=== PATIENT | male | born 1965 | race Caucasian/White ===

== ENCOUNTER 2018-02-03 23:24 | Inpatient (IN) | payer BC ==
[~2018-02-03] VITALS: Ht 180.3 cm; Wt 62.1 kg
--- NOTE | 2018-02-03 23:40 | ED.ADGEN ---
Past History Past Medical History: Alcoholism, Hepatitis, Other Adult General Chief Complaint Chief Complaint "... I need help to stop drinking... ".. :"When I try to stop by myself.. I get seizures...".." I been drinking about a .... Liter of vodka today... And have been for the past 6 months.. I was off alcohol for a couple months.. " "I ve got to stop... I just need help getting started..." HPI HPI Patient is a 52 year old male who presents with above hx and complaints of alcohol abuse. Patient's had periodic episodes of sobriety. Has been on an alcohol binge for the past 6 months. Thank you patient has been consuming approximately 1 L of vodka per day. Patient gives a history of alcohol withdrawal seizures in the past. Patient denies other drug use. Has been more nauseated today than usual. No history of trauma. No history of travel or specific ill contacts. Does have a history of past alcohol hepatitis. No history of suicidal ideation or homicidal ideation. Patient is accompanied with his [id number]-law. She states this is his baseline mentation when he drinks. Review of Systems Review of Systems Constitutional: Denies fever or chills [] Eyes: Denies change in visual acuity, redness, or eye pain [] HENT: Denies nasal congestion or sore throat [] Respiratory: Denies cough or shortness of breath [] Cardiovascular: No additional information not addressed in HPI [] GI: Denies abdominal pain, , vomiting, bloody stools or diarrhea []complains of nausea. : Denies dysuria or hematuria [] Musculoskeletal: Denies back pain or joint pain [] Integument: Denies rash or skin lesions [] Neurologic: Denies headache, focal weakness or sensory changes [ Endocrine: Denies polyuria or polydipsia [] All other systems were reviewed and found to be within normal limits, except as documented in this note. Family History Family History Noncontributory Current Medications Current Medications Current Medications Medications (Trade) Dose Ordered Sig/Indy Start Time Stop Time Status Last Admin Dose Admin Acetaminophen (Tylenol) 500 mg QIDPRN PRN 02/04/18 01:30 Folic Acid (FOLIC ACID SYRINGE for ER) 5 mg STK-MED ONCE 02/03/18 23:48 02/03/18 23:49 DC Lactated Ringer's 1,000 ml @ 1,000 mls/hr 1X ONCE 02/04/18 02:30 02/04/18 03:29 DC 02/04/18 02:56 1,000 MLS/HR Lorazepam (Ativan) 2 mg 1X PRN PRN 02/04/18 01:30 Magnesium Sulfate 50 ml @ 25 mls/hr 1X ONCE 02/04/18 02:00 02/04/18 03:59 02/04/18 02:56 25 MLS/HR Multivitamins/ Minerals (Infuvite Adult) 10 ml STK-MED ONCE 02/03/18 23:48 02/03/18 23:49 DC Multivitamins/ Minerals 10 ml/ Folic Acid 1 mg/ Thiamine HCl 100 mg/Lactated Ringer's 1,011.2 ml @ 1,011.2 mls/hr 1X ONCE 02/04/18 00:00 02/04/18 00:59 DC 02/04/18 00:04 1,011.2 MLS/HR Ondansetron HCl (Zofran) 8 mg 1X ONCE 02/04/18 02:15 02/04/18 02:16 DC 02/04/18 02:09 8 MG Potassium Chloride (KCl Oral Soln) 40 meq 1X ONCE 02/04/18 02:00 02/04/18 02:50 DC Thiamine HCl (Thiamine Im) 200 mg STK-MED ONCE 02/03/18 23:48 02/03/18 23:49 DC Allergies Allergies Allergies Coded Allergies Type Severity Reaction Last Updated Verified No Known Drug Allergies 02/03/18 No Physical Exam Physical Exam Constitutional: Moderately acute distress, intoxicated in appearance. [] HENT: Normocephalic, atraumatic, bilateral external ears normal, oropharynx moist, no oral exudates, nose normal. [] Eyes: PERRLA, EOMI, conjunctiva normal, no discharge. [] Neck: Normal range of motion, no tenderness, supple, no stridor. [] Cardiovascular: Tachycardia Heart rate regular rhythm, no murmur [] Lungs & Thorax: Bilateral breath sounds equal at apex with scattered wheezes on auscultation [] Abdomen: Bowel sounds normal, soft, no tenderness, no masses, no pulsatile masses. [] Skin: Warm, dry, no erythema, no rash. [] Back: No tenderness, no CVA tenderness. [] Old surgery scar Extremities: No tenderness, no cyanosis, no clubbing, ROM intact, no edema. [] Neurologic: Alert and oriented X 3, normal motor function, normal sensory function, no focal deficits noted. []DTRs +2 patella and brachial. Wide gait. Mild generalized dis coordination Psychologic: Affect anxious, judgement normal, mood be depressed Current Patient Data Vital Signs Vital Signs Date Time Temp Pulse Resp B/P (MAP) Pulse Ox O2 Delivery O2 Flow Rate FiO2 02/04/18 01:00 72 16 134/86 (102) 99 Room Air 02/03/18 23:29 98.1 Lab Results Laboratory Tests Test 02/04/18 00:10 02/04/18 01:53 White Blood Count 4.3 x10^3/uL (4.0-11.0) Red Blood Count 4.85 x10^6/uL (4.30-5.70) Hemoglobin 16.0 g/dL (13.0-17.5) Hematocrit 46.3 % (39.0-53.0) Mean Corpuscular Volume 96 fL (79-100) Mean Corpuscular Hemoglobin 33 pg (25-35) Mean Corpuscular Hemoglobin Concent 34 g/dL (31-37) Red Cell Distribution Width 15.2 % (11.5-14.5) H Platelet Count 39 x10^3/uL (140-400) L Neutrophils (%) (Auto) 67 % (31-73) Lymphocytes (%) (Auto) 22 % (24-48) L Monocytes (%) (Auto) 10 % (0-9) H Eosinophils (%) (Auto) 1 % (0-3) Basophils (%) (Auto) 1 % (0-3) Neutrophils # (Auto) 2.9 x10^3uL (1.8-7.7) Lymphocytes # (Auto) 0.9 x10^3/uL (1.0-4.8) L Monocytes # (Auto) 0.4 x10^3/uL (0.0-1.1) Eosinophils # (Auto) 0.0 x10^3/uL (0.0-0.7) Basophils # (Auto) 0.0 x10^3/uL (0.0-0.2) Platelet Estimate Decreased (ADEQUATE) Prothrombin Time 10.6 SEC (9.4-11.4) Prothrombin Time INR 1.1 (0.9-1.1) PTT 25 SEC (23-33) Sodium Level 138 mmol/L (136-145) Potassium Level 3.0 mmol/L (3.5-5.1) L Chloride Level 98 mmol/L (98-107) Carbon Dioxide Level 25 mmol/L (21-32) Anion Gap 15 (6-14) H Blood Urea Nitrogen 13 mg/dL (8-26) Creatinine 0.7 mg/dL (0.7-1.3) Estimated GFR (Cockcroft-Gault) 118.9 Glucose Level 139 mg/dL (70-99) H Calcium Level 8.0 mg/dL (8.5-10.1) L Magnesium Level 1.6 mg/dL (1.8-2.4) L Total Bilirubin 1.8 mg/dL (0.2-1.0) H Direct Bilirubin 1.1 mg/dL (0.0-0.2) H Aspartate Amino Transferase (AST) 281 U/L (15-37) H Alanine Aminotransferase (ALT) 97 U/L (16-63) H Alkaline Phosphatase 477 U/L (46-116) H Creatine Kinase 166 U/L (39-308) Troponin I Quantitative < 0.017 ng/mL (0-0.055) TR-Lya-X-Type Natriuretic Peptide 29 pg/mL (0-124) Total Protein 6.3 g/dL (6.4-8.2) L Albumin 3.3 g/dL (3.4-5.0) L Lipase 595 U/L (73-393) H Ethyl Alcohol Level 338 mg/dL (0-10) H Urine Collection Type Void Urine Color Yellow Urine Clarity Clear Urine pH 7.5 Urine Specific [place] 1.015 Urine Protein Neg (NEG-TRACE) Urine Glucose (UA) Neg mg/dL (NEG) Urine Ketones (Stick) Neg mg/dL (NEG) Urine Blood Neg (NEG) Urine Nitrite Neg (NEG) Urine Bilirubin Neg (NEG) Urine Urobilinogen Dipstick 8 mg/dL (0.2 mg/dL) Urine Leukocyte Esterase Neg (NEG) Urine RBC 0 /HPF (0-2) Urine WBC Occ /HPF (0-4) Urine Squamous Epithelial Cells Few /LPF Urine Bacteria 0 /HPF (0-FEW) Urine Opiates Screen Neg (NEG) Urine Methadone Screen Neg (NEG) Urine Barbiturates Neg (NEG) Urine Phencyclidine Screen Neg (NEG) Urine Amphetamine/Methamphetamine Neg (NEG) Urine Benzodiazepines Screen Neg (NEG) Urine Cocaine Screen Neg (NEG) Urine Cannabinoids Screen Neg (NEG) Urine Ethyl Alcohol Pos (NEG) EKG EKG I interpretation of EKG as a sinus rhythm at 91 bpm. Nonspecific contour changes in anterior lateral leads. But no findings acute STEMI with contralateral changes[] Radiology/Procedures Radiology/Procedures My interpretation of chest x-ray shows no acute cardiopulmonary findings.[] There is no free air under the diaphragm. Course & Med Decision Making Course & Med Decision Making Pertinent Labs and Imaging studies reviewed. (See chart for details) Patient admitted to Dr. Villar for further evaluation and treatment. [facility]- input for possible in pt. alcohol rehab. [] Final Impression Final Impression 1. Alcoholism[]- 338 2. Hx. of Alcohol Withdrawal Seizures 3. Hypomagnesium 1.6 4. Hypotension/ Dizzy 5. Hypokalemia 3.0 6. Elevated AST 281/ALT 97/T. Kiran 1.8/ D.Kiran 1.1 7. Elevated Lipase 8. Thrombocytopenia Dragon Disclaimer Dragon Disclaimer This electronic medical record was generated, in whole or in part, using a voice recognition dictation system. TOMMIE BROWN MD Feb 03, 2018 23:40
[2018-02-03] MEDS ORDERED: THIAMINE IM 200 MG/2 ML VIAL. IM ONE (23:48)
[2018-02-03] MEDS ORDERED: MVI, ADULT NO.4 WITH VIT K 10 ML VIAL IV ONE (23:48)
[2018-02-03] MEDS ORDERED: FOLIC ACID 5 MG/ML SYRINGE for ER IV ONE (23:48)
--- NOTE | 2018-02-03 23:55 | EKG ---
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 Electronically Signed On 02-05-2018 9:17:45 DIETITIAN CHIEF by Fredo Latham
[2018-02-04] MEDS ORDERED: IV RINGERS SOLUTION,LACTATED 1,000 ML IV SCH
[2018-02-04] MEDS ORDERED: MVI, ADULT NO.4 WITH VIT K 10 ML, FOLIC ACID SYRINGE for ER 1 MG, THIAMINE INJ 100 MG i... IV ONE ×4
[2018-02-04] MEDS ORDERED: ONDANSETRON PF 4 MG/2 ML VIAL. ONE (00:22)
[2018-02-04] MEDS ORDERED: ONDANSETRON PF 4 MG/2 ML VIAL. IV ONE ×2 (00:45→02:15)
[2018-02-04 00:46] LABS: BASO % 1 % (0-3); EOS % 1 % (0-3); HEMATOCRIT 46.3 % (39.0-53.0); LYMPH # 0.9 x10^3/uL (1.0-4.8); LYMPH % 22 % (24-48); MEAN CORPUSCULAR HEMOGLOBIN 33 pg (25-35); MEAN CORPUSCULAR HGB CONC 34 g/dL (31-37); MEAN CORPUSCULAR VOLUME 96 fL (79-100); MONO # 0.4 x10^3/uL (0.0-1.1); MONO % 10 % (0-9); NEUT # 2.9 x10^3uL (1.8-7.7); NEUT % 67 % (31-73); PLATELET COUNT 39 x10^3/uL (140-400); RED BLOOD COUNT 4.85 x10^6/uL (4.30-5.70); RED CELL DISTRIBUTION WIDTH 15.2 % (11.5-14.5); WHITE BLOOD COUNT 4.3 x10^3/uL (4.0-11.0)
[2018-02-04 01:04] LABS: PLT ESTIMATE DECREASED (ADEQUATE)
[2018-02-04 01:19] LABS: ALBUMIN 3.3 g/dL (3.4-5.0); CREATININE 0.7 mg/dL (0.7-1.3); DIRECT BILIRUBIN 1.1 mg/dL (0.0-0.2); GFR 118.9; MAGNESIUM 1.6 mg/dL (1.8-2.4); TOTAL BILIRUBIN 1.8 mg/dL (0.2-1.0); TOTAL PROTEIN 6.3 g/dL (6.4-8.2)
[2018-02-04] MEDS ORDERED: ACETAMINOPHEN 500 MG TABLET PO PRN (01:30)
[2018-02-04] MEDS ORDERED: ONDANSETRON PF 4 MG/2 ML VIAL. IV PRN (01:30)
[2018-02-04] MEDS ORDERED: MAGNESIUM SULFATE 2GM 50 ML IV ONE (02:00)
[2018-02-04] MEDS ORDERED: POTASSIUM CHLORIDE 20 MEQ/15 ML ORAL LIQUID. PO ONE (02:00)
[2018-02-04] MEDS: IV RINGERS SOLUTION,LACTATED 1,000 ML IV SCH ×6 (02:09→22:40)
[2018-02-04 02:17] LABS: BARBITURATES NEG (NEG); BENZODIAZEPINES NEG (NEG); CANNABINOIDS NEG (NEG); COCAINE NEG (NEG); METHADONE NEG (NEG); OPIATES NEG (NEG); PHENCYCLIDINE NEG (NEG)
[2018-02-04 02:22] LABS: BILIRUBIN,URINE NEG (NEG); CLARITY,URINE CLEAR; COLOR,URINE YELLOW; GLUCOSE,URINE NEG (NEG)
[2018-02-04 02:23] LABS: BACTERIA,URINE 0 /HPF (0-FEW); NITRITE,URINE NEG (NEG); RBC,URINE 0 /HPF (0-2); SQUAMOUS EPITHELIAL CELL,UR FEW /LPF; UROBILINOGEN,URINE 8 mg/dL (0.2 mg/dL); WBC,URINE OCC /HPF (0-4)
[2018-02-04 02:27] LABS: AMPHETAMINE/METHAMPHETAMINE NEG (NEG)
[2018-02-04] MEDS ORDERED: IV RINGERS SOLUTION,LACTATED 1,000 ML IV ONE (02:30)
[2018-02-04 02:45] VITALS: BP 142/91
[2018-02-04] MEDS ORDERED: HALOPERIDOL LACT 5 MG/ML VIAL. IV PRN (03:00)
[2018-02-04] MEDS ORDERED: cloNIDine HCL 0.1 MG TABLET PO PRN (03:00)
--- NOTE | 2018-02-04 03:05 | RAD ---
AP portable chest radiograph 02/03/2018 Clinical History: Alcohol intoxication. An AP erect portable digital radiograph of the chest was obtained. No previous studies are available for comparison. The cardiac silhouette is normal in size. The thoracic aorta is minimally tortuous. No acute pulmonary infiltrate is seen. No pleural effusion or pneumothorax is noted. The osseous structures are grossly intact. IMPRESSION: No acute abnormality is seen. Electronically signed by: gD Judd MD (02/04/2018 3:01 AM) [facility]
[2018-02-04] MEDS: chlordiazePOXIDE HCL 25 MG CAPSULE PO PRN ×3 (03:12→14:30)
[2018-02-04] MEDS ORDERED: POTASSIUM CHLORIDE 20 MEQ TABLET.ER. PO ONE ×2 (03:30→21:00)
[2018-02-04 05:09] VITALS: BP 136/75
[2018-02-04] MEDS: IPRATRPIUM/ALBUTEROL 0.5/2.5MG 3 ML NEBU. NEB SCH ×5 (08:00→20:54)
[2018-02-04] MEDS: LORazepam 1 MG TABLET PO SCH ×4 (08:22→20:14)
[2018-02-04] MEDS: NICOTINE 21MG PATCH. TD SCH (08:22)
[2018-02-04] MEDS: FAMOTIDINE 20 MG TABLET PO SCH (08:22)
[2018-02-04] MEDS: LORazepam 2 MG/ML VIAL IV PRN ×4 (08:27→14:30)
[2018-02-04] MEDS: MVI, ADULT NO.4 WITH VIT K 10 ML, FOLIC ACID SYRINGE for ER 1 MG, THIAMINE INJ 100 MG i... IV SCH ×4 (09:03)
[2018-02-04 10:37] LABS: CALCIUM 7.8 mg/dL (8.5-10.1); CREATININE 0.7 mg/dL (0.7-1.3); GFR 118.9; POTASSIUM 3.2 mmol/L (3.5-5.1)
[2018-02-04 10:49] VITALS: BP 114/71
[2018-02-04 14:51] VITALS: BP 110/72
--- NOTE | 2018-02-04 17:06 | HP ---
ADMIT DATE: 02/04/2018 HISTORY OF PRESENT ILLNESS: The patient is a 52-year-old male patient who came to the Emergency Room stating that he needs help to stop drinking. He stated that when he tries to stop himself, he gets seizures. He stated that he has been drinking about a liter of vodka every day and had been doing this for the last 6 months. He was off alcohol for a couple of months and he is here just to need help to stop drinking. He apparently has been on a alcohol binge for about 6 months, has been drinking approximately 1 liter of vodka every day the patient has history of alcohol withdrawal seizures in the past, but denied any other drug use and has been nauseated more than usual. There is no history of trauma, no history of travel or specific ill contact. He does have history of alcoholic hepatitis; however, he denied any suicidal or homicidal ideation. PAST MEDICAL HISTORY: Significant for alcoholic hepatitis versus liver cirrhosis, peripheral neuropathy. PAST SURGICAL HISTORY: Significant for back surgery. ALLERGIES: No known drug allergies. MEDICATIONS: No medication. FAMILY HISTORY: He has one brother of the pancreatic cancer. His mother at the age of 43 because of breast cancer. His father is still alive at age of 88 and healthy. SOCIAL HISTORY: He is , has 2 sons. He smokes a pack a day. He drinks about a liter of vodka every day. Does not use any drugs. 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 REVIEW OF SYSTEMS: The patient denied any blurring of vision, cataract, glaucoma or macular degeneration. Denied any earache, tinnitus, or sensorineural deafness. Denied any nosebleeds, stuffy nose, or postnasal drip. Denied any sore throat, sore tongue, toothache, hoarseness of voice, or difficulty swallowing. He did complain of nausea and vomiting, but denied any diarrhea or constipation. Denied any hematemesis, melena, or hematochezia. Denied any dysuria, frequency, or hematuria. Denied any chest pain, shortness of breath, orthopnea, or paroxysmal nocturnal dyspnea. Denied any cough, phlegm, or hemoptysis. Denied any dizziness, lightheadedness, or vertigo. PHYSICAL EXAMINATION: GENERAL: When I saw him, he was resting slightly propped up in bed, in no apparent respiratory distress. He was sleepy, but arousable. VITAL SIGNS: His heart rate was 78, blood pressure was 136/75, temperature was 98.5, respiratory rate 20, and oxygen saturation was 98%. HEAD, EYES, EARS, NOSE, AND THROAT: Normocephalic, atraumatic. NECK: Supple. HEART: Showed normal first and second heart sounds. No gallop, rub, or murmur. CHEST: Clear to auscultation. No crepitation or rhonchi. ABDOMEN: Distended, soft, nontender. NEUROLOGIC: He was sleepy, but arousable. All cranial nerves are intact. EXTREMITIES: He moves extremities without difficulty. LABORATORY DATA: His lab work on arrival showed a white cell count 4300, hemoglobin 16, hematocrit 46, MCV 96, and platelet count of 39,000 with normal manual differential. His chemistry showed serum sodium of 138, potassium 3, chloride 98, bicarbonate 25, anion gap of 15, BUN of 13, creatinine 0.7, estimated GFR was 118 mL per minute, his glucose was 139, calcium was 8, magnesium was 1.6. Total bilirubin is 1.8 and direct bilirubin is 1.1. AST and ALT are both elevated. Alkaline phosphatase is also elevated. His CK was 166. Beta natriuretic peptide was 29. Total protein was 6.3, albumin 3.3, and serum lipase was 595. His prothrombin time was 10.6, INR 1.1, and aPTT was 25. His urinalysis was essentially unremarkable. Toxic screen showed blood alcohol level was 338 mg/dL. The toxicology screen was negative for opiates, methadone, barbiturates, phencyclidine, amphetamine, methamphetamine, benzodiazepine, cocaine, and cannabinoids. IMPRESSION AND PLAN: In summary, this is a 52-year-old male patient who came in with alcoholism, history of alcohol withdrawal seizures, hypomagnesemia, hypokalemia, alcoholic hepatitis, thrombocytopenia and pancreatitis. We would continue with the banana bag. Continue with alcohol withdrawal protocol. We will monitor his lab work and replenish his potassium and magnesium. GARCÍA HERNANDEZ MD DR: BARBIE/deejay JOB#: [id number] / [id number]
--- NOTE | 2018-02-04 18:24 | PDOC ---
Exam Note: Salo Note: Please also refer to the separate dictated note~for this date of service dictated separately.~Patient seen individually. Discussed the patient with Nursing staff reviewed the chart.~Reviewed interim history and current functioning. Reviewed vital signs,~Labs/ Radiology~and current medications noted below. Continue current treatment with the changes noted in the dictated addendum note Assessment: Vital Signs: Vital Signs Date Time Temp Pulse Resp B/P (MAP) Pulse Ox O2 Delivery O2 Flow Rate FiO2 02/04/18 16:09 97 Room Air 02/04/18 14:51 99.2 91 20 110/72 (85) I&O Intake and Output 02/04/18 07:00 Intake Total 2006.77 ml Balance 2006.77 ml Intake Oral 800 ml IV Total 1206.77 ml # Voids 3 Labs: Laboratory Tests Test 02/04/18 00:10 02/04/18 01:53 02/04/18 04:15 02/04/18 10:08 White Blood Count 4.3 x10^3/uL (4.0-11.0) Red Blood Count 4.85 x10^6/uL (4.30-5.70) Hemoglobin 16.0 g/dL (13.0-17.5) Hematocrit 46.3 % (39.0-53.0) Mean Corpuscular Volume 96 fL (79-100) Mean Corpuscular Hemoglobin 33 pg (25-35) Mean Corpuscular Hemoglobin Concent 34 g/dL (31-37) Red Cell Distribution Width 15.2 % (11.5-14.5) H Platelet Count 39 x10^3/uL (140-400) L Neutrophils (%) (Auto) 67 % (31-73) Lymphocytes (%) (Auto) 22 % (24-48) L Monocytes (%) (Auto) 10 % (0-9) H Eosinophils (%) (Auto) 1 % (0-3) Basophils (%) (Auto) 1 % (0-3) Neutrophils # (Auto) 2.9 x10^3uL (1.8-7.7) Lymphocytes # (Auto) 0.9 x10^3/uL (1.0-4.8) L Monocytes # (Auto) 0.4 x10^3/uL (0.0-1.1) Eosinophils # (Auto) 0.0 x10^3/uL (0.0-0.7) Basophils # (Auto) 0.0 x10^3/uL (0.0-0.2) Platelet Estimate Decreased (ADEQUATE) Prothrombin Time 10.6 SEC (9.4-11.4) Prothrombin Time INR 1.1 (0.9-1.1) PTT 25 SEC (23-33) Sodium Level 138 mmol/L (136-145) 137 mmol/L (136-145) Potassium Level 3.0 mmol/L (3.5-5.1) L 3.2 mmol/L (3.5-5.1) L Chloride Level 98 mmol/L (98-107) 101 mmol/L (98-107) Carbon Dioxide Level 25 mmol/L (21-32) 26 mmol/L (21-32) Anion Gap 15 (6-14) H 10 (6-14) Blood Urea Nitrogen 13 mg/dL (8-26) 10 mg/dL (8-26) Creatinine 0.7 mg/dL (0.7-1.3) 0.7 mg/dL (0.7-1.3) Estimated GFR (Cockcroft-Gault) 118.9 118.9 Glucose Level 139 mg/dL (70-99) H 77 mg/dL (70-99) Calcium Level 8.0 mg/dL (8.5-10.1) L 7.8 mg/dL (8.5-10.1) L Magnesium Level 1.6 mg/dL (1.8-2.4) L 1.7 mg/dL (1.8-2.4) L Total Bilirubin 1.8 mg/dL (0.2-1.0) H Direct Bilirubin 1.1 mg/dL (0.0-0.2) H Aspartate Amino Transferase (AST) 281 U/L (15-37) H Alanine Aminotransferase (ALT) 97 U/L (16-63) H Alkaline Phosphatase 477 U/L (46-116) H Creatine Kinase 166 U/L (39-308) Troponin I Quantitative < 0.017 ng/mL (0-0.055) < 0.017 ng/mL (0-0.055) [id number]-Fjd-[id number]-Type Natriuretic Peptide 29 pg/mL (0-124) Total Protein 6.3 g/dL (6.4-8.2) L Albumin 3.3 g/dL (3.4-5.0) L Lipase 595 U/L (73-393) H Thyroid Stimulating Hormone (TSH) 0.490 uIU/mL (0.358-3.740) Ethyl Alcohol Level 338 mg/dL (0-10) H Hepatitis A IgM Antibody Nonreactive (Nonreactive) Hepatitis B Surface Antigen Nonreactive (Nonreactive) Hepatitis B Core IgM Antibody Nonreactive (Nonreactive) Hepatitis C IgG Antibody Nonreactive (Nonreactive) Urine Collection Type Void Urine Color Yellow Urine Clarity Clear Urine pH 7.5 Urine Specific [place] 1.015 Urine Protein Neg (NEG-TRACE) Urine Glucose (UA) Neg mg/dL (NEG) Urine Ketones (Stick) Neg mg/dL (NEG) Urine Blood Neg (NEG) Urine Nitrite Neg (NEG) Urine Bilirubin Neg (NEG) Urine Urobilinogen Dipstick 8 mg/dL (0.2 mg/dL) Urine Leukocyte Esterase Neg (NEG) Urine RBC 0 /HPF (0-2) Urine WBC Occ /HPF (0-4) Urine Squamous Epithelial Cells Few /LPF Urine Bacteria 0 /HPF (0-FEW) Urine Opiates Screen Neg (NEG) Urine Methadone Screen Neg (NEG) Urine Barbiturates Neg (NEG) Urine Phencyclidine Screen Neg (NEG) Urine Amphetamine/Methamphetamine Neg (NEG) Urine Benzodiazepines Screen Neg (NEG) Urine Cocaine Screen Neg (NEG) Urine Cannabinoids Screen Neg (NEG) Urine Ethyl Alcohol Pos (NEG) Current Medications: Meds: Current Medications Lactated Ringer's 1,000 ml @ 1,000 mls/hr Q1H IV Last administered on at 00:43; Start 02/04/18 at 00:00; Stop 02/04/18 at 00:59; Status DC Multivitamins/ Minerals 10 ml/ Folic Acid 1 mg/ Thiamine HCl 100 mg/Lactated Ringer's 1,011.2 ml @ 1,011.2 mls/hr 1X ONCE IV Last administered on at 00:04; Start 02/04/18 at 00:00; Stop 02/04/18 at 00:59; Status DC Thiamine HCl (Thiamine Im) 200 mg STK-MED ONCE IM ; Start 02/03/18 at 23:48; Stop 02/03/18 at 23:49; Status DC Multivitamins/ Minerals (Infuvite Adult) 10 ml STK-MED ONCE IV ; Start at 23:48; Stop 02/03/18 at 23:49; Status DC Folic Acid (FOLIC ACID SYRINGE for ER) 5 mg STK-MED ONCE IV ; Start 02/03/18 at 23:48; Stop 02/03/18 at 23:49; Status DC Ondansetron HCl (Zofran) 4 mg STK-MED ONCE .ROUTE ; Start 02/04/18 at 00:22; Stop 02/04/18 at 00:23; Status DC Ondansetron HCl (Zofran) 8 mg 1X ONCE IV Last administered on 02/04/18at 00:23 ; Start 02/04/18 at 00:45; Stop 02/04/18 at 00:46; Status DC Ondansetron HCl (Zofran) 4 mg PRN Q4HRS PRN IV NAUSEA/VOMITING; Start at 01:30; Stop 02/05/18 at 01:29 Albuterol/ Ipratropium (Duoneb) 3 ml RTQID NEB Last administered on 02/04/18at 16:09; Start 02/04/18 at 08:00; Stop 02/05/18 at 07:59 Multivitamins/ Minerals 10 ml/ Folic Acid 1 mg/ Thiamine HCl 100 mg/Lactated Ringer's 1,011.2 ml @ 125 mls/ hr DAILY IV Last administered on 02/04/18at 09: 03; Start 02/04/18 at 09:00; Stop 02/07/18 at 23:59 Lactated Ringer's 1,000 ml @ 160 mls/hr Q6H15M IV Last administered on at 16:10; Start 02/04/18 at 01:30 Lorazepam (Ativan) 2 mg QID PO Last administered on 02/04/18at 08:22; Start at 09:00 Lorazepam (Ativan) 2 mg 1X PRN PRN IV Seizure Last administered on 02/04/18at 14:30; Start 02/04/18 at 01:30 Famotidine (Pepcid) 20 mg DAILY PO Last administered on 02/04/18at 08:22; Start 02/04/18 at 09:00 Acetaminophen (Tylenol) 500 mg QIDPRN PRN PO pain or fever; Start 02/04/18 at 01:30 Magnesium Sulfate 50 ml @ 25 mls/hr 1X ONCE IV Last administered on at 02:56; Start 02/04/18 at 02:00; Stop 02/04/18 at 03:59; Status DC Potassium Chloride (KCl Oral Soln) 40 meq 1X ONCE PO ; Start 02/04/18 at 02:00 ; Stop 02/04/18 at 02:50; Status DC Lactated Ringer's 1,000 ml @ 1,000 mls/hr 1X ONCE IV Last administered on at 02:56; Start 02/04/18 at 02:30; Stop 02/04/18 at 03:29; Status DC Ondansetron HCl (Zofran) 8 mg 1X ONCE IV Last administered on 02/04/18at 02:09 ; Start 02/04/18 at 02:15; Stop 02/04/18 at 02:16; Status DC Potassium Chloride (Klor-Con) 40 meq 1X ONCE PO Last administered on at 03:12; Start 02/04/18 at 03:30; Stop 02/04/18 at 03:31; Status DC Chlordiazepoxide (Librium) 50 mg PRN Q1HR PRN PO For CIWA 8-14 Last administered on 02/04/18at 03:12; Start 02/04/18 at 03:00 Chlordiazepoxide (Librium) 100 mg PRN Q1HR PRN PO For CIWA 15 or greater Last administered on 02/04/18at 14:30; Start 02/04/18 at 03:00 Haloperidol Lactate (Haldol) 5 mg PRN Q4HRS PRN IV Hallucinatns,Confusn, Delirium; Start 02/04/18 at 03:00 Clonidine HCl (Catapres) 0.1 mg PRN Q1HR PRN PO SBP>180 OR DBP>100, MR X 3; Start 02/04/18 at 03:00 Nicotine (Nicoderm Cq 21mg) 1 patch DAILY TD Last administered on 02/04/18at 08 :22; Start 02/04/18 at 09:00 Lorazepam (Ativan) 2 mg Q1HR PRN IV ANXIETY / AGITATION Last administered on at 11:26; Start 02/04/18 at 08:30 Lorazepam (Ativan) 4 mg Q2HR PRN IV ANXIETY / AGITATION; Start 02/04/18 at 09: 15 Active Scripts Active Reported No Known Medications Prior To Admisstion (Info) Each 1 Each MC 1X I have reviewed the current psychotropics carefully including drug interactions. Risk benefit ratio favors no change other than as noted in my dictated progress note. Diagnosis: Problems: (1) Alcohol withdrawal syndrome (2) Alcohol dependence KAM KWOK MD Feb 04, 2018 18:24
[2018-02-04 20:35] VITALS: BP 119/78
[2018-02-04 22:49] VITALS: BP 125/67
[2018-02-05] MEDS: IV RINGERS SOLUTION,LACTATED 1,000 ML IV SCH ×2 (05:06→15:00)
[2018-02-05] MEDS: LORazepam 2 MG/ML VIAL IV PRN ×5 (05:06→17:16)
[2018-02-05] MEDS: IPRATRPIUM/ALBUTEROL 0.5/2.5MG 3 ML NEBU. NEB SCH (05:32)
[2018-02-05 06:11] VITALS: BP 124/75
[2018-02-05 07:29] LABS: CALCIUM 7.9 mg/dL (8.5-10.1); CREATININE 0.8 mg/dL (0.7-1.3); GFR 101.9; POTASSIUM 3.5 mmol/L (3.5-5.1)
[2018-02-05 07:31] LABS: BASO % 1 % (0-3); EOS # 0.1 x10^3/uL (0.0-0.7); EOS % 3 % (0-3); HEMOGLOBIN 13.4 g/dL (13.0-17.5); LYMPH # 0.8 x10^3/uL (1.0-4.8); LYMPH % 31 % (24-48); MEAN CORPUSCULAR HEMOGLOBIN 33 pg (25-35); MEAN CORPUSCULAR HGB CONC 34 g/dL (31-37); MEAN CORPUSCULAR VOLUME 96 fL (79-100); MONO # 0.2 x10^3/uL (0.0-1.1); MONO % 9 % (0-9); NEUT # 1.5 x10^3uL (1.8-7.7); NEUT % 56 % (31-73); RED BLOOD COUNT 4.04 x10^6/uL (4.30-5.70); RED CELL DISTRIBUTION WIDTH 14.7 % (11.5-14.5); WHITE BLOOD COUNT 2.7 x10^3/uL (4.0-11.0)
[2018-02-05 07:34] LABS: PLATELET COUNT 18 x10^3/uL (140-400)
[2018-02-05] MEDS: FAMOTIDINE 20 MG TABLET PO SCH (07:36)
[2018-02-05] MEDS: NICOTINE 21MG PATCH. TD SCH (07:38)
[2018-02-05] MEDS: LORazepam 1 MG TABLET PO SCH ×4 (07:39→20:54)
[2018-02-05] MEDS: chlordiazePOXIDE HCL 25 MG CAPSULE PO PRN (07:43)
[2018-02-05] MEDS: MVI, ADULT NO.4 WITH VIT K 10 ML, FOLIC ACID SYRINGE for ER 1 MG, THIAMINE INJ 100 MG i... IV SCH ×4 (09:00)
[2018-02-05 10:46] VITALS: BP 111/69
[2018-02-05 14:30] LABS: HEMATOCRIT 40.5 % (39.0-53.0); HEMOGLOBIN 13.6 g/dL (13.0-17.5); RED BLOOD COUNT 4.17 x10^6/uL (4.30-5.70); RED CELL DISTRIBUTION WIDTH 14.9 % (11.5-14.5); WHITE BLOOD COUNT 3.1 x10^3/uL (4.0-11.0)
[2018-02-05 14:51] LABS: ALBUMIN 2.8 g/dL (3.4-5.0); ALBUMIN/GLOBULIN RATIO 1.1 (1.0-1.7); CALCIUM 8.5 mg/dL (8.5-10.1); CREATININE 0.7 mg/dL (0.7-1.3); GFR 118.9; POTASSIUM 3.5 mmol/L (3.5-5.1); TOTAL BILIRUBIN 2.5 mg/dL (0.2-1.0); TOTAL PROTEIN 5.3 g/dL (6.4-8.2)
[2018-02-05 15:21] VITALS: BP 103/68
--- NOTE | 2018-02-05 17:14 | PDOC ---
Exam Note: Salo Note: Please also refer to the separate dictated note~for this date of service dictated separately.~Patient seen individually. Discussed the patient with Nursing staff reviewed the chart.~Reviewed interim history and current functioning. Reviewed vital signs,~Labs/ Radiology~and current medications noted below. Continue current treatment with the changes noted in the dictated addendum note Assessment: Vital Signs: Vital Signs Date Time Temp Pulse Resp B/P (MAP) Pulse Ox O2 Delivery O2 Flow Rate FiO2 02/05/18 15:21 97.7 70 103/68 (80) 100 Room Air 02/05/18 10:46 18 I&O Intake and Output 02/05/18 07:00 Intake Total 1050 ml Balance 1050 ml Intake Oral 1050 ml Labs: Laboratory Tests Test 02/05/18 06:50 02/05/18 14:15 White Blood Count 2.7 x10^3/uL (4.0-11.0) L 3.1 x10^3/uL (4.0-11.0) L Red Blood Count 4.04 x10^6/uL (4.30-5.70) L 4.17 x10^6/uL (4.30-5.70) L Hemoglobin 13.4 g/dL (13.0-17.5) 13.6 g/dL (13.0-17.5) Hematocrit 39.0 % (39.0-53.0) 40.5 % (39.0-53.0) Mean Corpuscular Volume 96 fL (79-100) 97 fL (79-100) Mean Corpuscular Hemoglobin 33 pg (25-35) 33 pg (25-35) Mean Corpuscular Hemoglobin Concent 34 g/dL (31-37) 34 g/dL (31-37) Red Cell Distribution Width 14.7 % (11.5-14.5) H 14.9 % (11.5-14.5) H Platelet Count 18 x10^3/uL (140-400) #*L 20 x10^3/uL (140-400) *L Neutrophils (%) (Auto) 56 % (31-73) Lymphocytes (%) (Auto) 31 % (24-48) Monocytes (%) (Auto) 9 % (0-9) Eosinophils (%) (Auto) 3 % (0-3) Basophils (%) (Auto) 1 % (0-3) Neutrophils # (Auto) 1.5 x10^3uL (1.8-7.7) L Lymphocytes # (Auto) 0.8 x10^3/uL (1.0-4.8) L Monocytes # (Auto) 0.2 x10^3/uL (0.0-1.1) Eosinophils # (Auto) 0.1 x10^3/uL (0.0-0.7) Basophils # (Auto) 0.0 x10^3/uL (0.0-0.2) Sodium Level 138 mmol/L (136-145) 140 mmol/L (136-145) Potassium Level 3.5 mmol/L (3.5-5.1) 3.5 mmol/L (3.5-5.1) Chloride Level 103 mmol/L (98-107) 104 mmol/L (98-107) Carbon Dioxide Level 25 mmol/L (21-32) 29 mmol/L (21-32) Anion Gap 10 (6-14) 7 (6-14) Blood Urea Nitrogen 9 mg/dL (8-26) 10 mg/dL (8-26) Creatinine 0.8 mg/dL (0.7-1.3) 0.7 mg/dL (0.7-1.3) Estimated GFR (Cockcroft-Gault) 101.9 118.9 Glucose Level 118 mg/dL (70-99) H 90 mg/dL (70-99) Calcium Level 7.9 mg/dL (8.5-10.1) L 8.5 mg/dL (8.5-10.1) BUN/Creatinine Ratio 14 (6-20) Total Bilirubin 2.5 mg/dL (0.2-1.0) H Aspartate Amino Transferase (AST) 411 U/L (15-37) H Alanine Aminotransferase (ALT) 155 U/L (16-63) H Alkaline Phosphatase 540 U/L (46-116) H Total Protein 5.3 g/dL (6.4-8.2) L Albumin 2.8 g/dL (3.4-5.0) L Albumin/Globulin Ratio 1.1 (1.0-1.7) Current Medications: Meds: Current Medications Lactated Ringer's 1,000 ml @ 1,000 mls/hr Q1H IV Last administered on at 00:43; Start 02/04/18 at 00:00; Stop 02/04/18 at 00:59; Status DC Multivitamins/ Minerals 10 ml/ Folic Acid 1 mg/ Thiamine HCl 100 mg/Lactated Ringer's 1,011.2 ml @ 1,011.2 mls/hr 1X ONCE IV Last administered on at 00:04; Start 02/04/18 at 00:00; Stop 02/04/18 at 00:59; Status DC Thiamine HCl (Thiamine Im) 200 mg STK-MED ONCE IM ; Start 02/03/18 at 23:48; Stop 02/03/18 at 23:49; Status DC Multivitamins/ Minerals (Infuvite Adult) 10 ml STK-MED ONCE IV ; Start at 23:48; Stop 02/03/18 at 23:49; Status DC Folic Acid (FOLIC ACID SYRINGE for ER) 5 mg STK-MED ONCE IV ; Start 02/03/18 at 23:48; Stop 02/03/18 at 23:49; Status DC Ondansetron HCl (Zofran) 4 mg STK-MED ONCE .ROUTE ; Start 02/04/18 at 00:22; Stop 02/04/18 at 00:23; Status DC Ondansetron HCl (Zofran) 8 mg 1X ONCE IV Last administered on 02/04/18at 00:23 ; Start 02/04/18 at 00:45; Stop 02/04/18 at 00:46; Status DC Ondansetron HCl (Zofran) 4 mg PRN Q4HRS PRN IV NAUSEA/VOMITING; Start at 01:30; Stop 02/05/18 at 01:29; Status DC Albuterol/ Ipratropium (Duoneb) 3 ml RTQID NEB Last administered on 02/05/18at 05:32; Start 02/04/18 at 08:00; Stop 02/05/18 at 07:59; Status DC Multivitamins/ Minerals 10 ml/ Folic Acid 1 mg/ Thiamine HCl 100 mg/Lactated Ringer's 1,011.2 ml @ 125 mls/ hr DAILY IV Last administered on 02/04/18at 09: 03; Start 02/04/18 at 09:00; Stop 02/07/18 at 23:59 Lactated Ringer's 1,000 ml @ 160 mls/hr Q6H15M IV Last administered on at 15:00; Start 02/04/18 at 01:30 Lorazepam (Ativan) 2 mg QID PO Last administered on 02/05/18at 07:39; Start at 09:00 Lorazepam (Ativan) 2 mg 1X PRN PRN IV Seizure Last administered on 02/05/18 08:17; Start 02/04/18 at 01:30 Famotidine (Pepcid) 20 mg DAILY PO Last administered on 02/04/18at 08:22; Start 02/04/18 at 09:00; Stop 02/05/18 at 07:36; Status DC Acetaminophen (Tylenol) 500 mg QIDPRN PRN PO pain or fever Last administered on 02/05/18at 14:31; Start 02/04/18 at 01:30 Magnesium Sulfate 50 ml @ 25 mls/hr 1X ONCE IV Last administered on at 02:56; Start 02/04/18 at 02:00; Stop 02/04/18 at 03:59; Status DC Potassium Chloride (KCl Oral Soln) 40 meq 1X ONCE PO ; Start 02/04/18 at 02:00 ; Stop 02/04/18 at 02:50; Status DC Lactated Ringer's 1,000 ml @ 1,000 mls/hr 1X ONCE IV Last administered on at 02:56; Start 02/04/18 at 02:30; Stop 02/04/18 at 03:29; Status DC Ondansetron HCl (Zofran) 8 mg 1X ONCE IV Last administered on 02/04/18at 02:09 ; Start 02/04/18 at 02:15; Stop 02/04/18 at 02:16; Status DC Potassium Chloride (Klor-Con) 40 meq 1X ONCE PO Last administered on at 03:12; Start 02/04/18 at 03:30; Stop 02/04/18 at 03:31; Status DC Chlordiazepoxide (Librium) 50 mg PRN Q1HR PRN PO For CIWA 8-14 Last administered on 02/04/18 03:12; Start 02/04/18 at 03:00 Chlordiazepoxide (Librium) 100 mg PRN Q1HR PRN PO For CIWA 15 or greater Last administered on 02/05/18 07:43; Start 02/04/18 at 03:00 Haloperidol Lactate (Haldol) 5 mg PRN Q4HRS PRN IV Hallucinatns,Confusn, Delirium Last administered on 02/05/18 08:57; Start 02/04/18 at 03:00 Clonidine HCl (Catapres) 0.1 mg PRN Q1HR PRN PO SBP>180 OR DBP>100, MR X 3; Start 02/04/18 at 03:00 Nicotine (Nicoderm Cq 21mg) 1 patch DAILY TD Last administered on 02/05/18at 07 :38; Start 02/04/18 at 09:00 Lorazepam (Ativan) 2 mg Q1HR PRN IV ANXIETY / AGITATION Last administered on at 05:06; Start 02/04/18 at 08:30 Lorazepam (Ativan) 4 mg Q2HR PRN IV ANXIETY / AGITATION Last administered on at 13:03; Start 02/04/18 at 09:15 Potassium Chloride (Klor-Con) 40 meq 1X ONCE PO Last administered on 21:01; Start 02/04/18 at 21:00; Stop 02/04/18 at 21:01; Status DC Magnesium Oxide (Magnesium Oxide) 400 mg TIDAFTMEAL PO ; Start 02/05/18 at 18: 00; Stop 02/09/18 at 21:00; Status UNV Active Scripts Active Reported No Known Medications Prior To Admisstion (Info) Each 1 Each MC 1X I have reviewed the current psychotropics carefully including drug interactions. Risk benefit ratio favors no change other than as noted in my dictated progress note. Diagnosis: Problems: (1) Major depressive disorder, recurrent episode (2) Alcohol withdrawal syndrome (3) Alcohol dependence KAM KWOK MD Feb 05, 2018 17:14
[2018-02-05] MEDS: MAGNESIUM OXIDE 400 MG TABLET PO SCH (18:15)
[2018-02-05 19:50] VITALS: BP 115/76
[2018-02-05] MEDS ORDERED: ONDANSETRON PF 4 MG/2 ML VIAL. IM ONE (20:30)
[2018-02-05] MEDS ORDERED: ONDANSETRON PF 4 MG/2 ML VIAL. IV PRN (20:45)
[2018-02-05 22:50] VITALS: BP 110/71
--- NOTE | 2018-02-05 22:52 | CONS ---
DATE OF CONSULTATION: 02/04/2018 PSYCHIATRIC CONSULTATION This late entry 02/04/2018 covers elements not covered in my initial note. IDENTIFYING DATA: The patient is a 52-year-old male seen in bed [address] [place] [address] for a psychiatric consult requested by Dr. Villar on account of the patient's depression and alcohol withdrawal, "requesting assistance with detox and depression." The patient was seen individually, discussed with nursing staff, reviewed the chart. CHIEF COMPLAINT: "I drink 1/5 of hard liquor a day. I drink in binges. Sometimes I can go for 8 months or longer." HISTORY OF PRESENT ILLNESS: The patient presented to the Emergency Room stating he needed help to stop drinking. He states in the past when he has tried to stop it himself, he gets seizures. He most recently has been drinking the above amounts about 6 months. He was off alcohol for a couple of months and he is presented for alcohol detox stating he is committed to abstinence. The patient has a past history of alcohol withdrawal seizures, but denied any drug use. He does have a history of blackouts and at least 2 DUIs. There is no history of trauma. He does have a history of alcohol hepatitis. No suicidal or homicidal ideation. He does admit to being depressed, but no symptoms of bipolar disorder. PAST PSYCHIATRIC HISTORY: As above. PAST MEDICAL HISTORY: Positive for alcoholic hepatitis versus liver cirrhosis, peripheral neuropathy. PAST SURGICAL HISTORY: Positive for back surgery. DRUG ALLERGIES: Negative. CURRENT PSYCHOTROPICS: At admission were no medications, but at the time when I saw him, he is on the detox protocol with Ativan. FAMILY HISTORY: Positive for pancreatic cancer in 1 brother. His mother at age 43 because of breast cancer. Father is alive at 88 and healthy. SOCIAL HISTORY: The patient states he lives with his ex-. He has 2 sons. He smokes a pack of cigarettes a day. Alcohol use as noted above. No drug usage. He states he works in the [employer] department with the [employer] [place], [place]. REVIEW OF SYSTEMS: Positive for hand tremors, tiredness, sedation. No hematemesis, melena, hematochezia. No dysuria, frequency, or hematuria. No chest pain, shortness of breath, orthopnea, paroxysmal nocturnal dyspnea. No cough or hemoptysis. MENTAL STATUS EXAM: The patient was seen individually in his room the evening of 02/04/2018. He is having significant tremors, trying to have his supper, dropping food all over and I assisted him for a period of time, and he was appreciative. Speech has moderate latency, low in rate and rhythm, somewhat slurred partly due to the benzodiazepine withdrawal protocol. No active suicidal or homicidal ideation. He states he feels subjectively depressed, but objectively difficult to review his affect given the withdrawal status, recent alcohol usage. No active suicidal or homicidal ideation. Intellect average. Insight fair. Judgment intact to standard questioning. IMPRESSION: Alcohol abuse dependence. Alcohol withdrawal syndrome, adjustment disorder with depressed mood and anxiety versus major depressive disorder; anxiety disorder, unspecified. The patient remains on the detox protocol and this should be continued. He is on Ativan 2 mg q.i.d. and Librium; protein is 5.3, low; albumin 2.8, low; AST is 411, ALT 155 and alkaline phosphatase 540, all elevated. Magnesium low at 1.7 and we will supplement with magnesium oxide 400 mg t.i.d. for 3 days. Urine drug screen negative other than for alcohol. I will avoid using an antidepressant just yet, but reassess once the detox protocol is completed. Dr. Villar, thank you for the opportunity to participate in your patient's care. We will follow with you. MAN Matteo KWOK MD DR: SANTY/deejay JOB#: [id number] / [id number]
--- NOTE | 2018-02-05 23:56 | PN ---
DATE: 02/05/2018 SUBJECTIVE: The patient is resting flat, sleeping comfortably in his bed, in no apparent distress. Nursing staff said that he has been very extremely restless, agitated, tremulous and has received multiple doses of Ativan as he is on alcohol withdrawal protocol. PHYSICAL EXAMINATION: GENERAL: When I saw him this afternoon, he was very sleepy, but arousable. He does open his eyes and drifts back to sleep. He was pale, but not jaundiced or cyanosed. No lymphadenopathy and no thyromegaly. No jugular venous distention. No limb edema. VITAL SIGNS: His heart rate was 78, blood pressure was 111/69, temperature was 98.4, respiratory rate was 18, and oxygen saturation was 98%. HEAD, EYES, EARS, NOSE, AND THROAT: Showed normocephalic, atraumatic. NECK: Supple. HEART: Showed normal first and second heart sounds with no gallop or murmur. CHEST: Clear to auscultation. No crepitation or rhonchi. ABDOMEN: Distended, soft, nontender. No guarding or rigidity. No organomegaly. All hernial orifices intact. Bowel sounds normal. NEUROLOGIC: He was awake, alert, responding. He was sleepy, but arousable. He opens his eyes, tracks and responds appropriately; however, he drifts back to sleep. All his cranial nerves are grossly intact. He moves extremities spontaneously, although he is mostly in bed. His intake was 1015, no output was recorded. LABORATORY DATA: His lab work showed his white cell count has dropped down to 2 2700, hemoglobin 13, hematocrit 39, MCV 96, and platelet count of 18,000 with normal manual differential. His chemistry showed a serum sodium 136, potassium 3.5, chloride 103, bicarbonate 25, anion gap of 10, BUN 9, creatinine 0.8, estimated GFR was 101 mL per minute. His glucose was 118, calcium was 7.9, magnesium was 1.7. His TSH was normal at 0.490. His hepatitis A IgM antibody was negative, hepatitis B surface antigen negative, hepatitis B core IgM antibody were negative, and hepatitis C IgG antibody was nonreactive. ASSESSMENT: So in summary, this is a 52-year-old male patient who came in with alcohol intoxication. He apparently is known to have alcoholic hepatitis versus alcoholic liver cirrhosis, peripheral neuropathy, thrombocytopenia. He continued to be in alcohol withdrawal and continued to be very tremulous, anxious, and agitated. PLAN: My plan is to continue with banana bag given the dramatic drop in his platelet count. I will repeat his CBC this afternoon and if it is dropping further, I will contact the 21 dealer/oncologist clothing consultant to decide to see whether he needs or requires platelet transfusion. GARCÍA HERNANDEZ MD DR: BARBIE/deejay JOB#: [id number] / [id number]
[2018-02-06] MEDS: IV RINGERS SOLUTION,LACTATED 1,000 ML IV SCH ×4 (00:17→16:00)
[2018-02-06] MEDS: LORazepam 2 MG/ML VIAL IV PRN ×7 (00:18→23:08)
[2018-02-06 06:13] VITALS: BP 112/71
[2018-02-06] MEDS: MAGNESIUM OXIDE 400 MG TABLET PO SCH ×3 (09:19→17:53)
[2018-02-06] MEDS: LORazepam 1 MG TABLET PO SCH ×4 (09:19→20:55)
[2018-02-06] MEDS: NICOTINE 21MG PATCH. TD SCH (09:20)
[2018-02-06] MEDS: MVI, ADULT NO.4 WITH VIT K 10 ML, FOLIC ACID SYRINGE for ER 1 MG, THIAMINE INJ 100 MG i... IV SCH ×4 (10:16)
[2018-02-06 11:16] VITALS: BP 115/74
[2018-02-06 16:13] VITALS: BP 123/78
[2018-02-06 16:53] LABS: HEMATOCRIT 40.3 % (39.0-53.0); HEMOGLOBIN 13.7 g/dL (13.0-17.5); RED BLOOD COUNT 4.18 x10^6/uL (4.30-5.70); WHITE BLOOD COUNT 3.5 x10^3/uL (4.0-11.0)
[2018-02-06 17:09] LABS: ALBUMIN/GLOBULIN RATIO 1.1 (1.0-1.7); CALCIUM 8.6 mg/dL (8.5-10.1); CREATININE 0.7 mg/dL (0.7-1.3); GFR 118.9; POTASSIUM 3.6 mmol/L (3.5-5.1); TOTAL BILIRUBIN 1.5 mg/dL (0.2-1.0); TOTAL PROTEIN 5.8 g/dL (6.4-8.2)
[2018-02-06 20:09] VITALS: BP 145/89
[2018-02-06] MEDS: chlordiazePOXIDE HCL 25 MG CAPSULE PO PRN (20:49)
--- NOTE | 2018-02-06 21:51 | PN ---
DATE: 02/05/2018 PSYCHIATRIC PROGRESS NOTE This late entry 02/05/2018 covers elements not covered in my initial note. SUBJECTIVE: I met with the patient in the evening. Per nursing report, the patient is doing better. He is less tremulous, cooperative with treatment. REVIEW OF SYSTEMS: Positive for some ongoing tremors, but these are much improved as I met with him in the evening. MENTAL STATUS EXAM: Speech has some latency, low in rate and rhythm, low in volume, often responses monosyllabic. Abstraction fair, computation impaired, language function intact, attention span short. Mood and affect somewhat withdrawn. The patient's serum magnesium was low at 1.7 and I have started magnesium oxide 400 mg 3 times a day for 5 days. Repeat level in about 3 days. IMPRESSION: Alcohol dependence withdrawal, major depressive disorder; anxiety disorder, unspecified. PLAN: Continue alcohol withdrawal protocol, supplemented magnesium is noted. Defer antidepressant till later. We will defer to Ale Amaro RN for alcohol rehab placement options. The patient is agreeable to this. I have addressed this with him at some length. MAN Matteo KWOK MD DR: SANTY/deejay JOB#: [id number] / [id number]
[2018-02-06 22:31] VITALS: BP 142/81
[2018-02-07] MEDS: LORazepam 2 MG/ML VIAL IV PRN ×3 (00:43→06:18)
--- NOTE | 2018-02-07 01:23 | PN ---
DATE: 02/06/2018 SUBJECTIVE: The patient is resting, slightly propped up in bed, in no apparent respiratory distress. He is definitely more awake, alert, although continued to be shaky and tremulous. On questioning him, he denied any complaint. OBJECTIVE: GENERAL: On examining him, he looked pale, not jaundice, cyanosis, or thyromegaly. No jugular venous distention. No limb edema. VITAL SIGNS: His heart rate was 69, blood pressure was 123/78, temperature was 98.2, respiratory rate was 20, and oxygen saturation was 97%. HEAD, EYES, EARS, NOSE AND THROAT: Showed normocephalic, atraumatic. NECK: Supple. HEART: Showed normal first and second heart sounds. No gallop, rub or murmur. CHEST: Clear to auscultation. No crepitation or rhonchi. ABDOMEN: Distended, soft, nontender. No guarding or rigidity. No organomegaly. All hernial orifice intact. Bowel sounds normal. NEUROLOGIC: He was awake, alert, responding appropriately. All cranial nerves intact. He moves extremities without difficulty. He apparently did walk to the shower and back without any assistance. LABORATORY WORK: As of yesterday showed a white cell count of 3100, hemoglobin 13.6, hematocrit 40, MCV 97 and platelet count of 20,000. His chemistry showed a serum sodium 140, potassium 3.5, chloride 104, bicarbonate 29, anion gap of 7, BUN 10, creatinine 0.7, estimated GFR was 118 mL per minute, his glucose was 90, calcium was 8.5. Total bilirubin 2.5. AST, ALT, alkaline phosphatase were elevated. ASSESSMENT: Alcohol intoxication, alcohol withdrawal seizures, has alcoholic hepatitis versus alcoholic liver disease, peripheral neuropathy, thrombocytopenia as well as pancreatitis. PLAN: My plan is to repeat his labs today and hopefully discharge him home tomorrow to alcohol detoxification center. GARCÍA HERNANDEZ MD DR: BARBIE/deejay JOB#: [id number] / [id number]
[2018-02-07 02:20] VITALS: BP 137/83
[2018-02-07 06:19] VITALS: BP 135/84
[2018-02-07 06:35] LABS: HEMATOCRIT 43.6 % (39.0-53.0); HEMOGLOBIN 14.7 g/dL (13.0-17.5); RED BLOOD COUNT 4.5 x10^6/uL (4.30-5.70); RED CELL DISTRIBUTION WIDTH 15.4 % (11.5-14.5); WHITE BLOOD COUNT 3.2 x10^3/uL (4.0-11.0)
[2018-02-07 06:53] LABS: ALBUMIN 3.3 g/dL (3.4-5.0); ALBUMIN/GLOBULIN RATIO 1.1 (1.0-1.7); CALCIUM 8.7 mg/dL (8.5-10.1); CREATININE 0.7 mg/dL (0.7-1.3); GFR 118.9; POTASSIUM 3.6 mmol/L (3.5-5.1); TOTAL BILIRUBIN 1.8 mg/dL (0.2-1.0); TOTAL PROTEIN 6.3 g/dL (6.4-8.2)
--- NOTE | 2018-02-07 20:35 | PN ---
DATE: 02/06/2018 This is a late entry for 02/06/2018 and covers elements not covered in my initial note. SUBJECTIVE: I met with the patient in the evening. Overall, per nursing report, the patient is doing better. He did have a low magnesium. This has been supplemented and we will be repeating a magnesium level in due course. His tremors are better, but he is still on the detox protocol per Dr. Villar. He is agreeable to going to rehab and I addressed this with him and Ale Abernathy RN, bilingual patient support caseworker, apparently is looking into options for this. REVIEW OF SYSTEMS: Still positive for some tremors, but he believed these are from Parkinson's disease, minimizes his usage of alcohol, which is problematic, but on the other hand, he does say he wants to remain abstinent. MENTAL STATUS EXAM: The patient is reasonably oriented. Speech is coherent, has some latency. Abstraction fair, computation impaired, language function intact. Mood and affect still somewhat anxious, but no suicidal or homicidal ideation. He is somewhat dysphoric, but it is best to defer initiation of antidepressants for another 6-8 weeks off the alcohol and then that decision can be made. IMPRESSION: Alcohol dependence, withdrawal; history of major depressive disorder; anxiety disorder, unspecified. RECOMMENDATION: From a psychiatric standpoint, I would not recommend anything differently. We will continue detox protocol. Consider antidepressants several weeks from now if needed. Arrange rehabilitation if the patient still agreeable. MAN Matteo KWOK MD DR: SANTY/deejay JOB#: [id number] / [id number]
== END 2018-02-07 09:19 | disposition left against medical advice (07) | DRG 438 ==
LOC: ER 23:24 → 1 SOUTH 02-04 02:37
PROVIDERS: ADMIT Internal Medicine; ATTEND Internal Medicine
DX: K85.90 Acute pancreatitis without necrosis or infection, unspecified (principal); G92 Toxic encephalopathy; F33.9 Major depressive disorder, recurrent, unspecified; F10.239 Alcohol dependence with withdrawal, unspecified; K70.10 Alcoholic hepatitis without ascites; F10.229 Alcohol dependence with intoxication, unspecified; D69.6 Thrombocytopenia, unspecified; F17.210 Nicotine dependence, cigarettes, uncomplicated; E87.6 Hypokalemia; F43.23 Adjustment disorder with mixed anxiety and depressed mood; E83.42 Hypomagnesemia; Z53.21 Procedure and treatment not carried out due to patient leaving prior to being seen by health care provider; F41.9 Anxiety disorder, unspecified; G62.9 Polyneuropathy, unspecified; Z80.0 Family history of malignant neoplasm of digestive organs; Z80.3 Family history of malignant neoplasm of breast
CPT/HCPCS: 36415; 71045; 80048; 80053; 80076; 80307; 81001; 82550; 83690; 83735; 83880; 84443; 84484; 85025; 85027; 85610; 85730; 86705; 86709; 86803; 87340; 93005; 94640; G0238; G0480; J1630; J2060; J2405; J3475; J7120; J7620